=== PATIENT | female | born 1990 | race Caucasian/White ===

== ENCOUNTER 2017-04-08 12:33 | Emergency (ER) | payer SELFPAY ==
[~2017-04-08] VITALS: Ht 167.6 cm; Wt 77.0 kg
[~2017-04-08 12:33] MED LIST: ALPR.25 PO; FIORIC PO; ZOFR4TAB3 SL
[2017-04-08 12:35] VITALS: BP 151/76; PULSE 80; RESP 16; TEMP 98.5; O2SAT 99
[2017-04-08] MEDS ORDERED: LIDOCAINE 1%/EPINEPHrine 1:100,000 SOLN 20 ML VIAL INFIL ONE (13:00)
[2017-04-08] MEDS ORDERED: LIDOCAINE 2%/EPINEPHrine 1:100,000 20ML MDV NERV BLOCK ONE (13:00)
[2017-04-08] MEDS ORDERED: CLIN150C14 PO (14:05)
--- NOTE | 2017-04-08 14:05 | PD ---
HPI Chief Complaint: Painter Spray Problem/Complaint Time Seen by Provider: 12:44 Travel History International Travel<30 days: No Contact w/Intl Traveler<30days: No Traveled to known affect area: No History of Present Illness HPI 26-year-old female reports about 2 or 3 days of left labial swelling and pain. Swelling in the area was much more noticeable yesterday and is since decreased. She denies abnormal discharge. No urinary frequency or dysuria. No Fever or Chills. Onset Gradual. Timing Constant. PFSH Past Medical History Anxiety: Yes Diminished Hearing: No Reproductive: Yes (polycystic ovarian syndrome ) Tetanus Vaccination: > 5 Years Influenza Vaccination: No ?: Not LMP: 03/28/17 Past Surgical History Tonsillectomy: Yes Social History Alcohol Use: No Tobacco Use: Yes (/2 ppd) Substance Use: No Allergies-Medications (Allergen,Severity, Reaction): Coded Allergies: No Known Allergies (Verified Adverse Reaction, Unknown, 04/08/17) Reported Meds & Prescriptions Reported Meds & Active Scripts Active Clindamycin (Clindamycin HCl) 150 Mg Cap 450 Mg PO Q8HR 5 Days Review of Systems Except as stated in HPI: all other systems reviewed are Neg General / Constitutional: No: Fever Physical Exam Narrative GENERAL: 26-year-old female pleasant well-nourished well-developed PELVIC: Along the labia minor and there is a 3 mm area of cellulitis which appears to be an unroofed abscess. There is no pocket of pus or fluctuance amenable to drainage. Within the vault there is small white discharge without CMT or blood. SKIN: Warm and dry. HEAD: Atraumatic. Normocephalic. CARDIOVASCULAR: Regular rate and rhythm. RESPIRATORY: No accessory muscle use. Clear to auscultation. Breath sounds equal bilaterally. GASTROINTESTINAL: Abdomen soft, non-tender, nondistended. Hepatic and splenic margins not palpable. MUSCULOSKELETAL: Extremities without clubbing, cyanosis, or edema. No obvious deformities. NEUROLOGICAL: Awake and alert. No obvious cranial nerve deficits. Motor grossly within normal limits. Five out of 5 muscle strength in the arms and legs. Normal speech. PSYCHIATRIC: Appropriate mood and affect; insight and judgment normal. Data Data Last Documented VS Vital Signs Date Time Temp Pulse Resp B/P (MAP) Pulse Ox O2 Delivery O2 Flow Rate FiO2 12/21/17 14:20 83 18 111/66 (81) 99 04/08/17 12:35 98.5 Vital signs reviewed Orders Orders Lidocai-Epi 1%-1:100,000 Inj (Xylocaine- (04/08/17 13:00) Lidocai-Epi 2%-1:100,000 Inj (Xylocaine- (04/08/17 13:00) Gc And Chlamydia Pcr (04/08/17 13:27) Wet Prep Profile (04/08/17 13:27) Ed Discharge Order (04/08/17 14:05) Labs Laboratory Tests Test 04/08/17 13:34 Clue Cells (Wet Prep) NONE SEEN Vaginal Trichomonas (Wet Prep) NONE SEEN Vaginal Yeast (Wet Prep) NONE SEEN MDM Medical Decision Making Medical Screen Exam Complete: Yes Emergency Medical Condition: Yes Differential Diagnosis IUP, UTI, ectopic , ov torsion, appendicitis, TOA, cervicitis, BV, Trichomoniasis, ov cyst, hernia, mittelschmerz, pain from menstruation Narrative Course Blood prep is negative. On exam there is a small area of cellulitis about the left labia minor which appears to have been an abscess which is opened and drained. At this time there is nothing amenable to drainage. a course of antibiotics is not unreasonable. Follow-up with obstetrics advised. Diagnosis Primary Impression: Labial infection Referrals: Sravani Pichardo MD 2 days Med/Other Pt SpecificInfo: Prescription(s) given Scripts Clindamycin (Clindamycin) 150 Mg Cap 450 MG PO Q8HR for Infection for 5 Days, CAP 0 Refills Prov: Roberto Gallego MD 04/08/17 Disposition: 01 DISCHARGE HOME Condition: Stable Roberto Gallego MD Apr 08, 2017 14:05
[2017-04-08 14:20] VITALS: BP 111/66
== END 2017-04-08 14:31 | disposition home or self-care (01) ==
LOC: PHED 12:33
DX: N76.2 Acute vulvitis (principal); F17.210 Nicotine dependence, cigarettes, uncomplicated
CPT/HCPCS: 87210; 87491; 87591; 99284